=== PATIENT | male | born 1985 | race Two or more races ===

== ENCOUNTER 2022-09-19 10:56 | Emergency (ER) | payer BC ==
[2022-09-19] MEDS ORDERED: Lidocaine 1% PF 2 ML SDV INJECT ONE ×2 (11:00→13:07)
[2022-09-19] MEDS ORDERED: Diphtheria,Pertussis(Acell),Tetanus Vaccine 0.5 ML Syringe IM ONE (11:00)
[2022-09-19] MEDS ORDERED: Lidocaine 1% 2 ML ONE (13:09)
== END 2022-09-19 13:28 | disposition home or self-care (01) ==
LOC: MW.ED 10:56
DX: S61.012A Laceration without foreign body of left thumb without damage to nail, initial encounter (principal); Z23 Encounter for immunization
CPT/HCPCS: 12001; 90471; 90715; 99282-25